=== PATIENT | female | born 1985 | race Hispanic/Latino ===

== ENCOUNTER 2016-11-02 21:09 | Emergency (ER) | payer MEDICAID ==
[2016-11-02 21:10] VITALS: BMI 45.6
[2016-11-02 21:37] VITALS: O2SAT 100
--- NOTE | 2016-11-02 22:45 | ED PDOC ---
HPI: General Adult Time Seen by Provider: 11/02/16 22:10 Chief Complaint (Nursing): Abdominal Pain History Per: Patient History/Exam Limitations: no limitations Additional Complaint(s): 31yo female comes to the ED complaining of discharge from the belly button. States abdominal pain began 3 days ago. Also reports nausea but no fever or vomit. Patient states she had a piercing there 8 years ago. No abdominal surgeries. No foreign objects inserted. Denies going into any pools or hot tubs. Denies using any new hygiene products. Patient was in [facility] [place] 2 months ago. Past Medical History Reviewed: Historical Data, Nursing Documentation, Vital Signs Vital Signs: Last Vital Signs Temp 97.9 F 11/02/16 23:42 Pulse 75 11/02/16 23:42 Resp 16 11/02/16 23:42 BP 135/80 11/02/16 23:42 Pulse Ox 100 11/02/16 23:42 - Medical History PMH: Asthma - Family History Family History: States: Unknown Family Hx - Social History Current smoker - smoking cessation education provided: No Ex-Smoker (has not smoked in the last 12 months): Yes - Home Medications Home Medications: Ambulatory Orders Medication Instructions Recorded Multivit/Folic Acid/I 1 tab PO DAILY 08/13/15 [] Docusate Sodium/Sennosides A 1 tab PO HS #0 tab 08/18/15 [Senokot S 50 MG-8.6 MG] Ferrous Sulfate [Ferosul] 325 mg PO BID #0 tablet 08/18/15 oxyCODONE/Acetaminophen [Percocet 1 tab PO TID #20 tab 08/18/15 5/325 mg Tab] Hydrocortisone 1% Cream [Cortizone 1 unit TP BID #1 tube 12/20/15 1% Cream] Ibuprofen 600 mg PO Q6 #30 tab 01/14/16 Clindamycin [Cleocin] 300 mg PO TID 7 Days 11/02/16 - Allergies Allergies/Adverse Reactions: Allergies Allergy/AdvReac Type Severity Reaction Status Date / Time No Known Allergies Allergy Verified 08/13/15 04:40 Review of Systems ROS Statement: Except As Marked, All Systems Reviewed And Found Negative Constitutional: Negative for: Fever Gastrointestinal: Positive for: Nausea, Abdominal Pain, Other (discharge from belly button). Negative for: Vomiting Physical Exam - Reviewed Nursing Documentation Reviewed: Yes Vital Signs Reviewed: Yes - Physical Exam Appears: Positive for: Well, Non-toxic, No Acute Distress Head Exam: Positive for: ATRAUMATIC, NORMAL INSPECTION, NORMOCEPHALIC Skin: Positive for: Warm, Dry Eye Exam: Positive for: EOMI, PERRL Cardiovascular/Chest: Positive for: Regular Rate, Rhythm Respiratory: Positive for: Normal Breath Sounds. Negative for: Rales, Rhonchi, Wheezing Gastrointestinal/Abdominal: Positive for: Other (Area of erythema within umbilicus with purulent discharge. No communication with the bowels. ) - ECG O2 Sat by Pulse Oximetry: 100 (RA) Pulse Ox Interpretation: Normal Medical Decision Making Medical Decision Makin Stable for discharge. Instructed to follow up with primary care in our clinic. Instructed to use Rx antibiotics as prescribed. Instructed to clean the discharge site twice a day. Return for worsening of pain, increased discharge or any other complaint. Culture was obtained by me and will be sent. Disposition - Clinical Impression Clinical Impression: Cellulitis - Disposition Referrals: [facility] [Outside] Disposition: Routine/Home Disposition Time: 22:50 Condition: STABLE Additional Instructions: Please followup at the clinic this week for a wound check. Return to the ER for high fevers, worsening redness/drainage, or any other concerning symptoms. Prescriptions: Clindamycin [Cleocin] 300 mg PO TID 7 Days Instructions: Cellulitis (ED) Additional Comments - Additional Comments Additional Comments: Scribe Attestation: Documented by Uziel Carranza acting as a scribe for Jennifer Graff MD. Scribe Attestation: All medical record entries made by the Scribe were at my direction and personally dictated by me. I have reviewed the chart and agree that the record accurately reflects my personal performance of the history, physical exam, medical decision making, and the department course for this patient. I have also personally directed, reviewed, and agree with the discharge instructions and disposition.
[2016-11-02 23:43] VITALS: BP 135/80; PULSE 75; RESP 16; TEMP 97.9
== END 2016-11-02 23:44 | disposition home or self-care (01) ==
LOC: H.ER 21:09
DX: R10.9 Unspecified abdominal pain (principal); L03.90 Cellulitis, unspecified; J45.909 Unspecified asthma, uncomplicated; Z87.891 Personal history of nicotine dependence; R11.0 Nausea

== ENCOUNTER 2018-03-16 17:43 | Emergency (ER) | payer OTHER ==
[2018-03-16 17:43] VITALS: BMI 45.6
[2018-03-16 18:26] VITALS: BP 99/65; PULSE 78; RESP 16; TEMP 98.3; O2SAT 98
--- NOTE | 2018-03-16 19:26 | ED PDOC ---
HPI: Back Time Seen by Provider: 03/16/18 19:13 Chief Complaint (Nursing): Back Pain Chief Complaint (Provider): Cental back pain after lifting object at work 3 days ago History Per: Patient History/Exam Limitations: no limitations Onset/Duration Of Symptoms: Days Current Symptoms Are (Timing): Still Present Full Body Front + Back: 1 - Pain Additional Complaint(s): 33 yo female with no medical problems presents for evaluation of lower back pain after lifting something heavy at work 3 days ago. Pt states she has been tolerating the pain with OTC creams. Pt states that today she feels the pain is worse. No numbness/tingling. No fever/chills. No bladder or bowel incontinence. Pt did not take any oral medications. PT reports radiation of pain down the left leg today. Past Medical History Reviewed: Historical Data, Nursing Documentation, Vital Signs Vital Signs: Last Vital Signs Temp 98.3 F 03/16/18 18:23 Pulse 78 03/16/18 18:23 Resp 16 03/16/18 18:23 BP 99/65 L 03/16/18 18:23 Pulse Ox 98 03/16/18 18:23 - Medical History PMH: Asthma - Surgical History Surgical History: No Surg Hx - Family History Family History: States: Unknown Family Hx - Living Arrangements Living Arrangements: With Family - Social History Current smoker - smoking cessation education provided: No - Home Medications Home Medications: Ambulatory Orders Medication Instructions Recorded Multivit/Folic Acid/I 1 tab PO DAILY 08/13/15 [] Docusate Sodium/Sennosides A 1 tab PO HS #0 tab 08/18/15 [Senokot S 50 MG-8.6 MG] Ferrous Sulfate [Ferosul] 325 mg PO BID #0 tablet 08/18/15 oxyCODONE/Acetaminophen [Percocet 1 tab PO TID #20 tab 08/18/15 5/325 mg Tab] Hydrocortisone 1% Cream [Cortizone 1 unit TP BID #1 tube 12/20/15 1% Cream] Ibuprofen 600 mg PO Q6 #30 tab 01/14/16 Clindamycin [Cleocin] 300 mg PO TID 7 Days cap 11/02/16 Cyclobenzaprine [Cyclobenzaprine 10 mg PO Q8H #20 tab 03/16/18 HCl] Naproxen [Naprosyn] 500 mg PO BID PRN #20 tablet 03/16/18 - Allergies Allergies/Adverse Reactions: Allergies Allergy/AdvReac Type Severity Reaction Status Date / Time No Known Allergies Allergy Verified 03/16/18 18:23 Physical Exam - Reviewed Nursing Documentation Reviewed: Yes Vital Signs Reviewed: Yes - Physical Exam Appears: Positive for: Well, Non-toxic, No Acute Distress Head Exam: Positive for: ATRAUMATIC, NORMAL INSPECTION, NORMOCEPHALIC Skin: Positive for: Normal Color, Warm, DRY Eye Exam: Positive for: Normal appearance ENT: Positive for: Normal ENT Inspection Neck: Positive for: Normal Cardiovascular/Chest: Positive for: Regular Rate, Rhythm Respiratory: Positive for: Normal Breath Sounds. Negative for: Accessory Muscle Use, Respiratory Distress Back: Positive for: Normal Inspection, Vertebral Tenderness (LS) Extremity: Positive for: Normal ROM Neurologic/Psych: Positive for: Alert, Oriented - ECG O2 Sat by Pulse Oximetry: 98 Medical Decision Making Medical Decision Making: No acute fracture or dislocation on XR. motrin and flexril given for pain in ER. Disposition - Clinical Impression Clinical Impression: Sciatica - Patient ED Disposition Is Patient to be Admitted: No Counseled Patient/Family Regarding: Diagnosis, Need For Followup, Rx Given - Disposition Referrals: [facility] [Outside] Disposition: Routine/Home Disposition Time: 21:15 Condition: STABLE Prescriptions: Cyclobenzaprine [Cyclobenzaprine HCl] 10 mg PO Q8H #20 tab Naproxen [Naprosyn] 500 mg PO BID PRN #20 tablet PRN Reason: Pain Instructions: Sciatica (DC) Forms: [employer] ([place]), [facility] ED School/Work Excuse
--- NOTE | 2018-03-17 09:09 | RAD ---
Date of service: 03/16/2018 PROCEDURE: Radiographs of the Lumbar Spine. HISTORY: back pain s/p lifting COMPARISON: No prior. FINDINGS: BONES: Normal alignment. No listhesis. No fracture. DISC SPACES: Unremarkable. OTHER FINDINGS: Anterior angulation of the coccyx may indicate subluxation with no cortical disruption appreciated. IMPRESSION: Normal lumbar spine series. Incidental capture of the coccyx indicates anterior angulation may reflect spondylolisthesis minimally. Clinically correlate further.
== END 2018-03-16 21:38 | disposition home or self-care (01) ==
LOC: H.ER 17:43
DX: M54.32 Sciatica, left side (principal)

== ENCOUNTER 2018-11-22 10:40 | Emergency (ER) | payer MEDICAID, OTHER ==
[2018-11-22 10:40] VITALS: BMI 40.8
[2018-11-22 11:35] VITALS: RESP 18; TEMP 97
--- NOTE | 2018-11-22 11:52 | ED PDOC ---
HPI: General Adult Time Seen by Provider: 11/22/18 11:47 Chief Complaint (Nursing): Abnormal Skin Integrity Chief Complaint (Provider): back pain/shoulder pain History Per: Patient (33 y/o female here after fall Wednesday at work. States she tripped over box and landed outstretched at work on left arm. Notes burning sensation on left lateral leg as well. Multiple bruises noted on upper and lower extremiteis.) Past Medical History Reviewed: Historical Data, Nursing Documentation, Vital Signs Vital Signs: Last Vital Signs Temp 97 F L 11/22/18 11:26 Pulse 84 11/22/18 11:26 Resp 18 11/22/18 11:26 BP 123/82 11/22/18 11:26 Pulse Ox 98 11/22/18 11:26 Primary Care Provider: Procedure,Nonphys - Medical History PMH: Asthma Denies: Chronic Kidney Disease - Family History Family History: States: Unknown Family Hx - Home Medications Home Medications: Ambulatory Orders Medication Instructions Recorded Multivit/Folic Acid/I 1 tab PO DAILY 08/13/15 [] Docusate Sodium/Sennosides A 1 tab PO HS #0 tab 08/18/15 [Senokot S 50 MG-8.6 MG] Ferrous Sulfate [Ferosul] 325 mg PO BID #0 tablet 08/18/15 oxyCODONE/Acetaminophen [Percocet 1 tab PO TID #20 tab 08/18/15 5/325 mg Tab] Hydrocortisone 1% Cream [Cortizone 1 unit TP BID #1 tube 12/20/15 1% Cream] Ibuprofen 600 mg PO Q6 #30 tab 01/14/16 Clindamycin [Cleocin] 300 mg PO TID 7 Days cap 11/02/16 Cyclobenzaprine [Cyclobenzaprine 10 mg PO Q8H #20 tab 03/16/18 HCl] Naproxen [Naprosyn] 500 mg PO BID PRN #20 tablet 03/16/18 Albuterol HFA [Ventolin HFA 90 200 puff IH Q4H #2 puff 10/26/18 mcg/actuation (8 g)] Methylprednisolone [Medrol Dose 4 mg PO DAILY #21 mg 10/26/18 Pack (21 tabs)] Naproxen 375 mg PO Q8 PRN #21 tablet 11/22/18 diaZEpam [Valium] 5 mg PO Q8 PRN #3 tab 11/22/18 - Allergies Allergies/Adverse Reactions: Allergies Allergy/AdvReac Type Severity Reaction Status Date / Time No Known Allergies Allergy Verified 10/26/18 04:23 Review of Systems ROS Statement: Except As Marked, All Systems Reviewed And Found Negative Physical Exam - Reviewed Nursing Documentation Reviewed: Yes Vital Signs Reviewed: Yes - Physical Exam Appears: Positive for: Well, Non-toxic, No Acute Distress Head Exam: Positive for: ATRAUMATIC, NORMAL INSPECTION, NORMOCEPHALIC Skin: Positive for: Warm. Negative for: Normal Color (ecchymosis left lateral arm. Ecchymosis right medial thigh.) Eye Exam: Positive for: EOMI, Normal appearance, PERRL ENT: Positive for: Normal ENT Inspection Neck: Positive for: Normal, Painless ROM Cardiovascular/Chest: Positive for: Regular Rate, Rhythm Respiratory: Positive for: CNT, Normal Breath Sounds Gastrointestinal/Abdominal: Positive for: Normal Exam, Soft Back: Positive for: Normal Inspection. Negative for: Vertebral Tenderness (paralumbar tenderness left sided.) Extremity: Positive for: Normal ROM, Tenderness (tenderness left AC joint. Limited range of motion due to pain.), Other (callus noted plantar surface of foot by right toe.) Neurological/Psych: Positive for: Awake, Alert, Normal Tone - ECG O2 Sat by Pulse Oximetry: 98 - Progress ED Course And Treament: Toradol 30 mg IM x dose Shoulder xry left: no fx; no abnormality Disposition - Clinical Impression Clinical Impression: Sciatica, Sprain of left shoulder, Callus of foot - Patient ED Disposition Is Patient to be Admitted: No - Disposition Referrals: [facility] [Outside] [facility] [Outside] Disposition: Routine/Home Disposition Time: 12:39 Condition: FAIR Prescriptions: diaZEpam [Valium] 5 mg PO Q8 PRN #3 tab PRN Reason: Muscle Spasm Naproxen 375 mg PO Q8 PRN #21 tablet PRN Reason: Pain, Moderate (4-7) Instructions: Shoulder Sprain (DC), Sciatica, Corns and Calluses, Contusion (DC) Forms: [facility] ED School/Work Excuse
[2018-11-22 13:38] VITALS: BP 117/72; PULSE 70; O2SAT 99
--- NOTE | 2018-11-22 15:58 | RAD ---
Date of service: 11/22/2018 PROCEDURE: Radiographs of the Left Shoulder HISTORY: left shoulder injury COMPARISON: No prior. TECHNIQUE: 3 views obtained. FINDINGS: BONES: Normal. No fracture. JOINTS: Normal. Glenohumeral and acromioclavicular joints preserved. No osteoarthritis. SOFT TISSUES: Normal. OTHER FINDINGS: None. IMPRESSION: Normal radiographs of the left shoulder.
== END 2018-11-22 13:12 | disposition home or self-care (01) ==
LOC: H.ER 10:40
DX: M54.30 Sciatica, unspecified side (principal); S43.402A Unspecified sprain of left shoulder joint, initial encounter; L84 Corns and callosities; J45.909 Unspecified asthma, uncomplicated; W01.0XXA Fall on same level from slipping, tripping and stumbling without subsequent striking against object, initial encounter
CPT/HCPCS: 73030; 81025; 96372; 99284; J1885